=== PATIENT | female | born 1990 | race Asian ===

== ENCOUNTER 2017-04-11 11:09 | Emergency (ER) | payer SELFPAY ==
[~2017-04-11] VITALS: Ht 162.6 cm; Wt 72.6 kg
[2017-04-11] MEDS ORDERED: NKM (11:16)
[2017-04-11 11:23] VITALS: BP 133/97
[2017-04-11] MEDS ORDERED: Ketorolac 30mg Inj IV ONE (12:00)
[2017-04-11 12:28] LABS: BASOPHILS % (AUTO) 0.5 % (0.0-2.0); EOSINOPHILS % (AUTO) 1.2 % (0.0-3.0); LYMPHOCYTES % (AUTO) 25.2 % (20.0-45.0); MEAN CORPUSCULAR HEMOGLOBIN 28.5 PG (27.0-31.0); MEAN CORPUSCULAR HGB CONC 31.9 G/DL (32.0-36.0); MEAN CORPUSCULAR VOLUME 90 FL (80-99); MEAN PLATELET VOLUME 6.6 FL (6.5-10.1); MONOCYTES % (AUTO) 5.3 % (1.0-10.0); NEUTROPHILS % (AUTO) 67.8 % (45.0-75.0); PLATELET COUNT 450 K/UL (150-450); RED BLOOD COUNT 4.45 M/UL (4.20-5.40); RED CELL DISTRIBUTION WIDTH 11.6 % (11.6-14.8); WHITE BLOOD COUNT 15.7 K/UL (4.8-10.8)
[2017-04-11 12:43] LABS: ALANINE AMINOTRANSFERASE 18 U/L (3-33); ALBUMIN/GLOBULIN RATIO 0.9 (1.0-2.7); ANION GAP 11 (5-15); ASPARTATE AMINO TRANSFERASE 12 U/L (5-40); CARBON DIOXIDE 26 mEQ/L (20-30); CHLORIDE 102 mEQ/L (98-107); CREATININE 0.7 mg/dL (0.5-0.9); GLOMERULAR FILTRATION RATE > 60 mL/min (>60); HEMOLYSIS 11; POTASSIUM 3.7 mEQ/L (3.4-4.9); SODIUM 139 mEQ/L (135-145); TOTAL PROTEIN 8.3 g/dL (6.6-8.7)
[2017-04-11 13:33] LABS: ERYTHROCYTE SEDIMENTATION RATE 55 MM/HR (0-20)
[2017-04-11] MEDS ORDERED: cefTRIAXone 1 GM in NS 55 ML IVPB ONE (14:30)
--- NOTE | 2017-04-11 15:07 | Emergency Room Report ---
History of Present Illness General Chief Complaint: Sore Throat Source: Patient Present Illness HPI Sore throat for 2 weeks. Worsening with swelling and difficulty swallowing. Also pain with moving her head. No fevers or chills at this time. No respiratory difficulty. Bilateral swelling mostly anteriorly. No prior thyroid problems. No chest pain, palpitations, rashes. Pain 7/10, constant and worse with swallow and movement. No headache. No swelling in pharynx. No NVD. Not . No rashes. Allergies: Coded Allergies: No Known Allergies (Unverified , 04/11/17) Patient History Past Medical History: see triage record Social History: Denies: smoking Social History Narrative writer - social media marketer Last Menstrual Period: 04/09/17 Reviewed Nursing Documentation: PMH: Agreed, PSxH: Agreed Nursing Documentation-PM Past Medical History: No History, Except For Review of Systems All Other Systems: negative except mentioned in HPI Physical Exam Vital Signs Date Time Temp Pulse Resp B/P Pulse Ox O2 Delivery O2 Flow Rate FiO2 04/11/17 11:13 98.2 91 14 133/97 98 Room Air ENT: normal ENT inspection, hearing grossly normal, normal pharynx, no angioedema, normal voice Neck: no meningismus, no bony tend, limited range of motion, other - possible thyroid enlargement, tender - anteriolaterally, trachea not tender. Unable to feel nodes due to swelling. Respiratory: chest non-tender, lungs clear, normal breath sounds Cardiovascular #1: regular rate, rhythm Gastrointestinal: normal inspection Musculoskeletal: digits/nails normal, gait/station normal, normal range of motion Neurologic: oriented x3, motor strength/tone normal, sensory intact, speech normal Psychiatric: mood/affect normal Skin: no rash Medical Decision Making Diagnostic Impression: Primary Impression: Cervical lymphadenitis ER Course Patient with neck pain worsening 2 weeks. 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 Airway appears unaffected but needs to be assessed. Also need to assess thyroid function.. Labs and CT ordered. Also will treat with toradol. Increased WBC and ESR. Normal thyroid function. CT without mass. Enlarged lymph nodes. Rocephin given. Patient improved with decreased pain. Patient stable for outpatient observation and treatment. Laboratory Tests Test 04/11/17 12:07 White Blood Count 15.7 K/UL (4.8-10.8) H Red Blood Count 4.45 M/UL (4.20-5.40) Hemoglobin 12.7 G/DL (12.0-16.0) Hematocrit 39.9 % (37.0-47.0) Mean Corpuscular Volume 90 FL (80-99) Mean Corpuscular Hemoglobin 28.5 PG (27.0-31.0) Mean Corpuscular Hemoglobin Concent 31.9 G/DL (32.0-36.0) L Red Cell Distribution Width 11.6 % (11.6-14.8) Platelet Count 450 K/UL (150-450) Mean Platelet Volume 6.6 FL (6.5-10.1) Neutrophils (%) (Auto) 67.8 % (45.0-75.0) Lymphocytes (%) (Auto) 25.2 % (20.0-45.0) Monocytes (%) (Auto) 5.3 % (1.0-10.0) Eosinophils (%) (Auto) 1.2 % (0.0-3.0) Basophils (%) (Auto) 0.5 % (0.0-2.0) Erythrocyte Sedimentation Rate 55 MM/HR (0-20) H Sodium Level 139 mEQ/L (135-145) Potassium Level 3.7 mEQ/L (3.4-4.9) Chloride Level 102 mEQ/L (98-107) Carbon Dioxide Level 26 mEQ/L (20-30) Anion Gap 11 (5-15) Blood Urea Nitrogen 12 mg/dL (7-23) Creatinine 0.7 mg/dL (0.5-0.9) Estimate Glomerular Filtration Rate > 60 mL/min (>60) Glucose Level 110 mg/dL (74-106) H Calcium Level 10.0 mg/dL (8.6-10.2) Total Bilirubin 0.4 mg/dL (0.0-1.2) Aspartate Amino Transferase (AST) 12 U/L (5-40) Alanine Aminotransferase (ALT) 18 U/L (3-33) Alkaline Phosphatase 72 U/L (35-104) Total Protein 8.3 g/dL (6.6-8.7) Albumin 4.1 g/dL (3.5-5.2) Globulin 4.2 g/dL Albumin/Globulin Ratio 0.9 (1.0-2.7) L Thyroid Stimulating Hormone (TSH) 1.310 uIU/mL (0.300-4.500) CT/MRI/US Diagnostic Results CT/MRI/US Diagnostic Results : Imaging Test Ordered: neck Impression Findings: Study is limited as no IV contrast was given. There is fluid within the sphenoid sinus consistent with sinusitis. The mastoids are essentially clear bilaterally. There is prominence of the palatine tonsils. The parapharyngeal fat appears symmetric. There are multiple nodes within the neck bilaterally, short axis measurements up to 1 cm. These are presumably inflammatory given the history and other findings. The larynx and subglottic airway appear normal. The epiglottis appears normal. Lung apices appear clear. Impression: Hagerman tonsillar hypertrophy may be due to tonsillitis/pharyngitis. Multiple nodes throughout the neck presumably inflammatory. Note: No obvious tonsillar abscess is identified. However, CT evaluation for abscess is limited without the administration of IV contrast. Last Vital Signs Date Time Temp Pulse Resp B/P Pulse Ox O2 Delivery O2 Flow Rate FiO2 04/11/17 15:29 98.2 76 17 132/92 99 Room Air Status: improved Disposition: HOME, SELF-CARE Condition: Improved Scripts Ibuprofen* (MOTRIN*) 600 Mg Tablet 600 MG ORAL Q6H Y for For Pain, #20 TAB Prov: Brennon Howe M.D. 04/11/17 Tramadol Hcl* (ULTRAM*) 50 Mg Tablet 50 MG ORAL Q6H Y for For Pain, #12 TAB 0 Refills Prov: Brennon Howe M.D. 04/11/17 Doxycycline Monohydrate* (DOXYCYCLINE MONOHYDRATE*) 100 Mg Capsule 100 MG ORAL Q12H, #14 CAP 0 Refills Prov: Brennon Howe M.D. 04/11/17 Referrals: NON PHYSICIAN (PCP) Brennon Howe M.D. Apr 11, 2017 15:07
--- NOTE | 2017-04-11 15:10 | Diagnostic Imaging Report ---
Indication: Sore throat and cough Technique: Continuous helical imaging of the neck was obtained transaxially from the skull base to the upper thoracic spine. 2-D coronal and sagittal reformatted images were obtained. Total Dose length Product (DLP): [address] Dose Index Volume (CTDIvol): 17 mGy Comparison: None Findings: Study is limited as no IV contrast was given. There is fluid within the sphenoid sinus consistent with sinusitis. The mastoids are essentially clear bilaterally. There is prominence of the palatine tonsils. The parapharyngeal fat appears symmetric. There are multiple nodes within the neck bilaterally, short axis measurements up to 1 cm. These are presumably inflammatory given the history and other findings. The larynx and subglottic airway appear normal. The epiglottis appears normal. Lung apices appear clear. Impression: Elora tonsillar hypertrophy may be due to tonsillitis/pharyngitis. Multiple nodes throughout the neck presumably inflammatory. Note: No obvious tonsillar abscess is identified. However, CT evaluation for abscess is limited without the administration of IV contrast. The CT scanner at [facility] is accredited by the [employer] and the scans are performed using dose optimization techniques as appropriate to a performed exam including Automatic Exposure control.
[2017-04-11] MEDS ORDERED: TRAMADOL HCL50 MG ORAL (15:14)
[2017-04-11] MEDS ORDERED: DOXYCYCLINE MO100 MG ORAL (15:14)
[2017-04-11] MEDS ORDERED: IBUPROFEN600 MG ORAL (15:14)
[2017-04-11 15:22] VITALS: BP 132/92
[2017-04-11 15:29] VITALS: BP 132/92
== END 2017-04-11 15:27 | disposition home or self-care (01) ==
LOC: EMR 11:58
DX: I88.9 Nonspecific lymphadenitis, unspecified (principal)
CPT/HCPCS: 36415; 70490; 80053; 84443; 85025; 85651; 96374; 96375; 99284; J0696; J1885